=== PATIENT | female | born 2005 | race Caucasian/White ===

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

== ENCOUNTER → 2024-07-19 07:32 | Outpatient (REF) | payer OTHER, SELFPAY | LOC: HWRAD 07:32 | PROVIDERS: ATTENDING PHYSICIAN Student in an Organized Health Care Education/Training Program; FAMILY PHYSICIAN Family Medicine | DX: R51.9 Headache, unspecified (principal) | CPT/HCPCS: 70450 ==

== ENCOUNTER 2024-09-13 06:13 | Day surgery (SDC) | payer OTHER, SELFPAY ==
[2024-08-28 08:35] LABS: Hematocrit 39.5 % (37.0-47.0); Hemoglobin 13.8 g/dL (12.0-16.0); Mean Corp Hgb Conc. 34.9 g/dL (33.0-37.0); Mean Corpuscular Hgb 28.8 pg (27.0-31.0); Mean Corpuscular Volume 82.3 fL (81.0-99.0); Mean Platelet Volume 10.8 fL (7.4-10.4); Platelet Count 365 10^3/uL (130-400); Red Cell Dist. Width 12.2 % (11.5-14.5); White Blood Cell Count 7.6 10^3/uL (4.8-10.8)
[2024-08-28 09:12] LABS: HCG, Urine Qualitative Screen Negative
[2024-08-28 13:40] VITALS: BMI 52.1
[2024-09-13 11:45] VITALS: BP 119/80
[2024-09-13 11:58] VITALS: BMI 52.1
[2024-09-13] MEDS: TYLENOL 1000 MG PO (12:05)
[2024-09-13] MEDS: NORMOSOL-R/PLASMALYTE-A 1000 IV (12:27)
[2024-09-13 15:53] VITALS: BP 125/74
[2024-09-13 15:55] VITALS: BP 119/80
[2024-09-13 16:00] VITALS: BP 136/76
[2024-09-13] MEDS: DILAUDID 0.25 MG IV (16:05)
[2024-09-13 16:15] VITALS: BP 128/74
[2024-09-13 17:00] VITALS: BP 135/84
== END 2024-09-13 17:10 | disposition home or self-care (01) ==
LOC: SDS 06:13
PROVIDERS: ATTENDING PHYSICIAN Otolaryngology; FAMILY PHYSICIAN Family Medicine
DX: H72.92 Unspecified perforation of tympanic membrane, left ear (principal); J34.2 Deviated nasal septum; J34.3 Hypertrophy of nasal turbinates
CPT/HCPCS: 30520; 69610; 30140; 36415; 81025; 85027

== ENCOUNTER → 2025-03-29 08:18 | Outpatient (REF) | payer OTHER, SELFPAY ==
[2025-03-29 10:22] LABS: ALT (SGPT) 13 U/L (0-35); AST (SGOT) 15 U/L (14-36); Albumin 3.9 g/dl (3.5-5.0); Alkaline Phosphatase 87 U/L (38-126); Blood Urea Nitrogen 6 mg/dl (7-17); Calcium 9.7 mg/dl (8.4-10.2); Carbon Dioxide 21 mmol/L (22-30); Chloride 110 mmol/L (98-107); Glucose 98 mg/dl (70-99); HDL Cholesterol 70 mg/dl; LDL Cholesterol, Calculated 102 mg/dl; Potassium 4.4 mmol/L (3.5-5.1); Sodium 137 mmol/L (135-145); Total Protein 6.8 g/dl (6.3-8.2); Very Low Density Lipoprotein 27 mg/dl (0-30); eGFR > 60.00
[2025-03-29 10:30] LABS: Free T3 4.25 pg/ml (2.77-5.27)
[2025-03-29 10:43] LABS: Cortisol, Random 20.8 ug/dl; TSH 2.22 uIU/ml (0.47-4.68)
[2025-03-29 12:10] LABS: Glycohemoglobin (HgbA1c) 5.1 % (4.0-5.6)
== END ==
LOC: REG 08:18
PROVIDERS: ATTENDING PHYSICIAN Family Medicine
DX: E66.01 Morbid (severe) obesity due to excess calories (principal); N94.6 Dysmenorrhea, unspecified; R53.83 Other fatigue; R73.01 Impaired fasting glucose
CPT/HCPCS: 36415; 80053; 80061; 82533; 83036; 84439; 84443; 84481

== ENCOUNTER → 2025-07-12 06:57 | Outpatient (REF) | payer OTHER, SELFPAY ==
[2025-07-12 08:42] LABS: Hematocrit 39.4 % (37.0-47.0); Hemoglobin 13.4 g/dL (12.0-16.0); Mean Corp Hgb Conc. 34.0 g/dL (33.0-37.0); Mean Corpuscular Volume 88.7 fL (81.0-99.0); Nucleated Red Blood Cells % 0 %; Platelet Count 302 10^3/uL (130-400); Red Cell Dist. Width 12.3 % (11.5-14.5)
== END ==
LOC: REG 06:57
PROVIDERS: ATTENDING PHYSICIAN Family Medicine
DX: D72.829 Elevated white blood cell count, unspecified (principal)
CPT/HCPCS: 36415; 85025